=== PATIENT | female | born 2000 | race Hispanic/Latino ===

== ENCOUNTER 2023-10-04 19:46 | Emergency (ER) | payer BC ==
--- NOTE | 2023-10-04 20:38 | RAD REPORT ---
EXAM DESCRIPTION: US - Abdomen Exam Limited - 10/04/2023 8:32 pm CLINICAL HISTORY: RUQ pain COMPARISON: Abdomen Exam Complete dated 01/07/2016 FINDINGS: The gallbladder demonstrates no gallstones. No pericholecystic fluid or gallbladder wall t hickening. The common bile duct is normal measuring 4 mm. The liver demonstrates prominent fatty liver. IMPRESSION: Negative gallbladder/ biliary tree. Prominent fatty liver.
[2023-10-04] MEDS ORDERED: ONDANSETRON 4 MG/2 ML VIAL ONE (20:45)
[2023-10-04] MEDS ORDERED: FAMOTIDINE 20 MG/2 ML VIAL IV ONE (20:45)
[2023-10-04] MEDS ORDERED: NA CHLORIDE 0.9% 1,000 ML ONE (20:45)
[2023-10-04] MEDS ORDERED: KETOROLAC 30 MG/ML INJ ONE (20:45)
[2023-10-04 21:32] LABS: Specific Gravity > 1.030 (1.005-1.030); Urine Bilirubin NEGATIVE (Negative); Urine Blood Negative (Negative); Urine Clarity Clear (Clear); Urine Color Light-Yellow (Yellow); Urine Glucose 4+ (Over) (Negative); Urine Ketones 1+ (Negative); Urine Microscopic Reflex YN NO UMIC; Urine Nitrite NEGATIVE (Negative); Urine Protein NEGATIVE (Negative); Urine Urobilinogen 1+ (Normal); Urine pH 6.5 (5.0-7.0)
[2023-10-04 21:34] LABS: Specific Gravity > 1.030 (1.005-1.030)
[2023-10-04 21:47] LABS: Albumin 3.2 g/dL (3.4-5.0); Albumin/Globulin Ratio 0.8 (1.1-1.8); Anion Gap 11.5 mEq/L (5.0-15.0); Bilirubin Total 0.4 mg/dL (0.2-1.0); Globulin 4.2 g/dL (2.3-3.5); Potassium 3.5 mEq/L (3.5-5.1); Protein, Total 7.4 g/dL (6.4-8.2)
[2023-10-04 21:51] LABS: Absolute Eosinophils 0.1 K/uL (0-0.5); Absolute Lymphocytes (CBC) 3.1 K/uL (0.7-4.9); Absolute Monocytes 0.6 K/uL (0.1-1.3); Basophils % 0.3 % (0-1.3); Eosinophils % 1.2 % (0-4.4); Hematocrit 42.6 % (36.0-45.0); Hemoglobin 14.7 g/dL (12.0-15.0); Lymphocytes % 31.1 % (15.3-44.8); MCH 29.7 pg (27.0-35.0); MCHC 34.4 g/dL (32.0-36.0); MCV 86.4 fL (80-100); MPV 8.1 fL (7.6-11.3); Monocytes % 5.9 % (3.3-12.3); Neutrophils % 61.5 % (41.7-73.7); Nucleated Red Blood Cells % 0.4 % (0-0); Platelets 257 thou/uL (152-406); RBC Red Blood Cell Count 4.93 M/uL (3.86-4.86); Red Cell Distribution Width 14.3 % (12.1-15.2)
--- NOTE | 2023-10-04 22:21 | RAD REPORT ---
EXAM DESCRIPTION: CTAbdomen Pelvis W Contrast - 10/04/2023 10:13 pm CLINICAL HISTORY: Abdominal pain. ABD PAIN COMPARISON: No comparisons TECHNIQUE: CT imaging of the abdomen and pelvis was performed with 100 ml non-ionic IV contrast. All CT scans are performed using dose optimization technique as appropriate and may include automated exposure control or mA/KV adjustment according to patient size. FINDINGS: The lung bases are clear. The liver demonstrates diffuse fatty infiltration. The spleen, pancreas, adrenal glands and kidneys a re within normal limits. No bowel obstruction, free air, free fluid or abscess. Moderate stool throughout the colon. The appen galina is normal. No evidence of significant lymphadenopathy. No suspicious bony findings. Prominent posterior disc bulging lower lumbar levels. IMPRESSION: No acute intra-abdominal or pelvic finding. Prominent diffuse fatty liver.
--- NOTE | 2023-10-04 23:24 | ER ---
Nurse's Notes [facility] Name: Becky García Age: 23 yrs Sex: Female : 2000 Arrival Date: 10/04/2023 Time: 19:46 Bed 11 Private MD: Diagnosis: Upper abdominal pain, unspecified;Type 2 diabetes mellitus with hyperglycemia Presentation: 10/03 20:01 Chief complaint: Patient states: upper right abdominal pain, bloating, nausea, tender lg3 to touch X3 days and i think i might be . Coronavirus screen: Client denies travel out of the [place] in the last 14 days. At this time, the client does not indicate any symptoms associated with coronavirus-19. Ebola Screen: No symptoms or risks identified at this time. Initial Sepsis Screen: Does the patient meet any 2 criteria? No. Patient's initial sepsis screen is negative. Does the patient have a suspected source of infection? No. Patient's initial sepsis screen is negative. Risk Assessment: Do you want to hurt yourself or someone else? Patient reports no desire to harm self or others. Onset of symptoms was October 02, 2023. 20:01 Method Of Arrival: Ambulatory lg3 20:01 Acuity: ZANA 3 lg3 Triage Assessment: 20:03 General: Appears in no apparent distress. comfortable, Behavior is calm, cooperative. lg3 Pain: Complains of pain in right upper quadrant. EENT: No deficits noted. No signs and/or symptoms were reported regarding the EENT system. Neuro: No deficits noted. Adam Agitation-Sedation Scale (RASS): 0 - Alert and Calm Level of Consciousness is awake, alert, obeys commands, Oriented to person, place, time, situation. Cardiovascular: No deficits noted. Denies chest pain, shortness of breath, Capillary refill < 3 seconds Clubbing of nail beds is absent JVD is absent Patient's skin is warm and dry. Respiratory: No deficits noted. Airway is patent Respiratory effort is even, unlabored, Respiratory pattern is regular, symmetrical. GI: Abdomen is round non-distended, obese, Reports upper abdominal pain, gaseousness, nausea. : No signs and/or symptoms were reported regarding the genitourinary system. Derm: No deficits noted. No signs and/or symptoms reported regarding the dermatologic system. Skin is intact, is healthy with good turgor, Skin is dry, Skin is normal, Skin temperature is warm. Musculoskeletal: No deficits noted. No signs and/or symptoms reported regarding the musculoskeletal system. Circulation, motion, and sensation intact. Range of motion: intact in all extremities. 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 09/08/2023, unknown lg3 Historical: - Allergies: 20:03 No Known Allergies; lg3 - Home Meds: 20:03 metformin 750 mg Oral Tablet, Extended Release 24 hr 2 times per day [Active]; lg3 escitalopram oxalate oral 25 mg daily [Active]; gabapentin oral [Active]; Insulin: Regular Sub-Q [Active]; Farxiga 10 mg oral tablet daily [Active]; atorvastatin 20 mg oral tablet daily [Active]; - PMHx: 20:03 seasonal allergy; Diabetes mellitus; Anxiety; Depressive disorder; fatty liver; GERD; lg3 high cholesterol; - PSHx: 20:03 section; Tonsillectomy; Adenoid excision; lg3 - Immunization history:: Adult Immunizations up to date, Client reports receiving the 2nd dose of the Covid vaccine, Flu vaccine is up to date. - Infectious Disease History:: Denies. - Social history:: Smoking status: Patient denies any tobacco usage or history of. Patient/guardian denies using alcohol, street drugs. - Family history:: not pertinent. Screenin:35 [facility] ED Fall Risk Assessment (Adult) History of falling in the last 3 months, cm10 including since admission No falls in past 3 months (0 pts) Confusion or Disorientation No (0 pts) Intoxicated or Sedated No (0 pts) Impaired Gait No (0 pts) Mobility Assist Device Used No (0 pt) Altered Elimination No (0 pt) Score/Fall Risk Level 0 - 2 = Low Risk Oriented to surroundings, Maintained a safe environment, Hourly rounding (assess needs \T\ fall precautionary measures) done. Abuse screen: Denies threats or abuse. Denies injuries from another. Nutritional screening: No deficits noted. Tuberculosis screening: No symptoms or risk factors identified. Assessment: 21:00 General: Appears in no apparent distress. comfortable, Behavior is calm, cooperative. cm10 Neuro: No deficits noted. Level of Consciousness is awake, alert, obeys commands, Oriented to person, place, time, situation. Respiratory: No deficits noted. Airway is patent Respiratory effort is even, unlabored, Respiratory pattern is regular, symmetrical. GI: Abd is soft. Vital Signs: 20:01 BP 131 / 75; Pulse 90; Resp 17 S; Temp 98.3(O); Pulse Ox 100% on R/A; Weight 116.12 kg lg3 (R); Height 5 ft. 3 in. (R); 21:41 BP 124 / 74; Pulse 74; Resp 18; Pulse Ox 97% ; cm10 22:00 BP 124 / 74; Pulse 75; Resp 16; Pulse Ox 98% on R/A; cm10 22:30 BP 126 / 72; Pulse 67; Resp 16; Pulse Ox 99% ; cm10 23:00 BP 125 / 75; Pulse 68; Resp 18; Pulse Ox 98% on R/A; cm10 20:01 Body Mass Index 45.35 (116.12 kg, 160.02 cm) lg3 Keven Coma Score: 10/04 04:34 Eye Response: spontaneous(4). Motor Response: obeys commands(6). Verbal Response: sp4 oriented(5). Total: 15. ED Course: 10/03 19:49 Patient arrived in ED. mr 20:03 Triage completed. lg3 20:03 Arm band placed on right wrist. lg3 20:07 Teodoro Bentley MD is Attending Physician. sp4 20:33 US Abdomen Limited In Process Unspecified. EDMS 20:41 Mary Ramirez, RN is Primary Nurse. cm10 21:01 CBC with Diff Sent. cm10 21:01 CMP Sent. cm10 21:02 Lipase Sent. cm10 21:02 Test, Urine Sent. cm10 21:02 Urinalysis w/ reflexes Sent. cm10 21:02 Initial lab(s) drawn, by ak, sent to lab. Urine collected: clean catch specimen. cm10 Inserted saline lock: 20 gauge in right forearm, using aseptic technique. Blood collected. 22:13 CT Abd/Pelvis - IV Contrast Only In Process Unspecified. EDMS 23:22 Joseph Burdick DO is Referral Physician. sp4 23:35 No provider procedures requiring assistance completed. IV discontinued, intact, cm10 bleeding controlled, No redness/swelling at site. Pressure dressing applied. 23:36 Patient has correct armband on for positive identification. Provided Education on: cm10 Follow-up instructions. Administered Medications: 21:01 Drug: NS 0.9% IV 1000 ml IV at 1 bolus Per protocol; 1000 mL bolus Route: IV; Rate: 1 cm10 bolus; Site: right forearm; 22:00 Follow up: Response: No adverse reaction; IV Status: Completed infusion; IV Intake: cm10 1000ml 21:01 Drug: Famotidine IVP 20 mg IVP once; dilute with 10 mL 0.9% NaCl; give over 2 minutes cm10 Route: IVP; Site: right forearm; 22:00 Follow up: Response: No adverse reaction cm10 21:01 Drug: Ondansetron IVP 4 mg IVP once; over 2 minutes Route: IVP; Site: right forearm; cm10 23:35 Follow up: Response: No adverse reaction cm10 21:40 Drug: TORadol - Ketorolac IVP 30 mg IVP once Route: IVP; Site: right antecubital; cm10 23:35 Follow up: Response: No adverse reaction cm10 Medication: 23:36 VIS not applicable for this client. cm10 Intake: 22:00 IV: 1000ml; Total: 1000ml. cm10 Outcome: 23:23 Discharge ordered by MD. brooks 23:36 Discharged to home ambulatory, with significant other, cm10 23:36 Condition: good 23:36 Discharge instructions given to patient, Instructed on discharge instructions, follow up and referral plans. medication usage, Demonstrated understanding of instructions, follow-up care, medications, Prescriptions given X 2, 23:37 Patient left the ED. cm10 Signatures: Dispatcher [employer] EDAZ Kennedi Johnson, Danay Campuzano RN RN lg3 Teodoro Bentley MD MD sp4 Mary Ramirez RN RN cm10 Corrections: (The following items were deleted from the chart) 20:08 20:01 Chief complaint: Patient states: upper right abdominal pain, bloating, nausea, lg3 tender to touch X3 days lg3
--- NOTE | 2023-10-04 23:24 | EDPHYS ---
Physician Documentation [facility] Name: Becky García Age: 23 yrs Sex: Female : 2000 Arrival Date: 10/04/2023 Time: 19:46 Bed 11 Private MD: ED Physician Teodoro Bentley HPI: 10/03 20:07 This 23 yrs old Female presents to ER via Ambulatory with complaints of sp4 Abdominal Pain. 10/04 04:34 Patient presents with right upper abdominal pain for the past 3 days associated with sp4 vomiting. History of seasonal allergy, diabetes, anxiety, depression, fatty liver, GERD.. 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: 10/03 20:03 LMP 09/08/2023, unknown lg3 Historical: - Allergies: 20:03 No Known Allergies; lg3 - Home Meds: 20:03 metformin 750 mg Oral Tablet, Extended Release 24 hr 2 times per day [Active]; lg3 escitalopram oxalate oral 25 mg daily [Active]; gabapentin oral [Active]; Insulin: Regular Sub-Q [Active]; Farxiga 10 mg oral tablet daily [Active]; atorvastatin 20 mg oral tablet daily [Active]; - PMHx: 20:03 seasonal allergy; Diabetes mellitus; Anxiety; Depressive disorder; fatty liver; GERD; lg3 high cholesterol; - PSHx: 20:03 section; Tonsillectomy; Adenoid excision; lg3 - Immunization history:: Adult Immunizations up to date, Client reports receiving the 2nd dose of the Covid vaccine, Flu vaccine is up to date. - Infectious Disease History:: Denies. - Social history:: Smoking status: Patient denies any tobacco usage or history of. Patient/guardian denies using alcohol, street drugs. - Family history:: not pertinent. ROS: 10/04 04:34 Constitutional: Negative for fever, chills, and weight loss, positive abdominal pain, sp4 positive vomiting All other systems are negative, Exam: 04:34 Constitutional: This is a well developed, well nourished patient who is awake, alert, sp4 and in no acute distress. Head/Face: Normocephalic, atraumatic. Eyes: Pupils equal round and reactive to light, extra-ocular motions intact. Lids and lashes normal. Conjunctiva and sclera are not injected. Cornea within normal limits. Periorbital areas with no swelling, redness, or edema. ENT: Nares patent. No nasal discharge, no septal abnormalities noted. Tympanic membranes are normal and external auditory canals are clear. Oropharynx with no redness, swelling, or masses, exudates, or evidence of obstruction, uvula midline. Mucous membranes moist. Neck: Trachea midline, no thyromegaly or masses palpated, and no cervical lymphadenopathy. Supple, full range of motion without nuchal rigidity, or vertebral point tenderness. Chest/axilla: Normal chest wall appearance and motion. Nontender with no deformity. No lesions are appreciated. Cardiovascular: Regular rate and rhythm with a normal S1 and S2. No gallops, murmurs, or rubs. Normal PMI, no JVD. No pulse deficits. Respiratory: Lungs have equal breath sounds bilaterally, clear to auscultation and percussion. No rales, rhonchi or wheezes noted. No increased work of breathing, no retractions or nasal flaring. Abdomen/GI: Soft, with normal bowel sounds. No distension or tympany. No guarding or rebound. No evidence of tenderness throughout. Back: No spinal tenderness. No costovertebral tenderness. Skin: Warm, dry with normal turgor. Normal color with no rashes, no lesions, and no evidence of cellulitis. MS/ Extremity: Pulses equal, no cyanosis. Neurovascular intact. Full, normal range of motion. Neuro: Awake and alert, GCS 15, oriented to person, place, time, and situation. Cranial nerves II-XII grossly intact. Motor strength 5/5 in all extremities. Sensory grossly intact. Psych: Awake, alert, with orientation to person, place and time. Behavior, mood, and affect are within normal limits Vital Signs: 10/03 20:01 BP 131 / 75; Pulse 90; Resp 17 S; Temp 98.3(O); Pulse Ox 100% on R/A; Weight 116.12 kg lg3 (R); Height 5 ft. 3 in. (R); 21:41 BP 124 / 74; Pulse 74; Resp 18; Pulse Ox 97% ; cm10 22:00 BP 124 / 74; Pulse 75; Resp 16; Pulse Ox 98% on R/A; cm10 22:30 BP 126 / 72; Pulse 67; Resp 16; Pulse Ox 99% ; cm10 23:00 BP 125 / 75; Pulse 68; Resp 18; Pulse Ox 98% on R/A; cm10 20:01 Body Mass Index 45.35 (116.12 kg, 160.02 cm) lg3 Keven Coma Score: 10/04 04:34 Eye Response: spontaneous(4). Motor Response: obeys commands(6). Verbal Response: sp4 oriented(5). Total: 15. MDM: 10/03 20:14 Patient medically screened. sp4 23:19 ED course: EXAM DESCRIPTION: CTAbdomen Pelvis W Contrast - 10/04/2023 10:13 pm CLINICAL sp4 HISTORY: Abdominal pain. ABD PAIN COMPARISON: No comparisons TECHNIQUE: CT imaging of the abdomen and pelvis was performed with 100 ml non-ionic IV contrast. All CT scans are performed using dose optimization technique as appropriate and may include automated exposure control or mA/KV adjustment according to patient size. FINDINGS: The lung bases are clear. The liver demonstrates diffuse fatty infiltration. The spleen, pancreas, adrenal glands and kidneys are within normal limits. No bowel obstruction, free air, free fluid or abscess. Moderate stool throughout the colon. The appendix is normal. No evidence of significant lymphadenopathy. No suspicious bony findings. Prominent posterior disc bulging lower lumbar levels. IMPRESSION: No acute intra-abdominal or pelvic finding. Prominent diffuse fatty liver. . ED course: EXAM DESCRIPTION: US - Abdomen Exam Limited - 10/04/2023 8:32 pm CLINICAL HISTORY: RUQ pain COMPARISON: Abdomen Exam Complete dated 01/07/2016 FINDINGS: The gallbladder demonstrates no gallstones. No pericholecystic fluid or gallbladder wall thickening. The common bile duct is normal measuring 4 mm. The liver demonstrates prominent fatty liver. IMPRESSION: Negative gallbladder/ biliary tree. Prominent fatty liver. Signed By: Raul Black MD. 10/04 04:33 Differential Diagnosis altered mental status, sepsis, flu. Data reviewed: vital signs, sp4 nurses notes, lab test result(s), radiologic studies, CT scan. ED course: Workup unremarkable, stable for discharge home.. 04:34 Consideration of Admission/Observation Escalation of care including sp4 admission/observation considered. ED course: Stable for discharge home.. 10/03 20:18 Order name: CBC with Diff; Complete Time: 23:11 sp4 10/03 20:18 Order name: CMP; Complete Time: 23:11 sp4 10/03 20:18 Order name: Lipase; Complete Time: 23:11 sp4 10/03 20:18 Order name: Test, Urine; Complete Time: 23:11 sp4 10/03 20:18 Order name: Urinalysis w/ reflexes; Complete Time: 23:11 sp4 10/03 20:18 Order name: CT Abd/Pelvis - IV Contrast Only; Complete Time: 23:11 sp4 10/03 20:18 Order name: US Abdomen Limited; Complete Time: 23:11 sp4 10/03 20:18 Order name: IV Saline Lock; Complete Time: 21:01 sp4 10/03 20:18 Order name: Labs collected and sent; Complete Time: 21: sp4 Administered Medications: 10/03 21:01 Drug: NS 0.9% IV 1000 ml IV at 1 bolus Per protocol; 1000 mL bolus Route: IV; Rate: 1 cm10 bolus; Site: right forearm; 22:00 Follow up: Response: No adverse reaction; IV Status: Completed infusion; IV Intake: cm10 1000ml 21:01 Drug: Famotidine IVP 20 mg IVP once; dilute with 10 mL 0.9% NaCl; give over 2 minutes cm10 Route: IVP; Site: right forearm; 22:00 Follow up: Response: No adverse reaction cm10 21:01 Drug: Ondansetron IVP 4 mg IVP once; over 2 minutes Route: IVP; Site: right forearm; cm10 23:35 Follow up: Response: No adverse reaction cm10 21:40 Drug: TORadol - Ketorolac IVP 30 mg IVP once Route: IVP; Site: right antecubital; cm10 23:35 Follow up: Response: No adverse reaction cm10 Disposition Summary: 10/04/23 23:23 Discharge Ordered Notes: Location: Home sp4 Problem: new sp4 Symptoms: have improved sp4 Condition: Stable sp4 Diagnosis - Upper abdominal pain, unspecified sp4 - Type 2 diabetes mellitus with hyperglycemia sp4 Followup: sp4 - With: Private Physician - When: 7 - 10 days - Reason: Recheck today's complaints Discharge Instructions: - Discharge Summary Sheet sp4 - Abdominal Pain, Adult sp4 Forms: - Patient Portal Instructions sp4 Prescriptions: - Reglan 10 mg Oral tablet - take 1 tablet ORAL route every 6 hours PRN abdominal ache and nausea; 30 sp4 tablet; Refills: 0, Product Selection Permitted - dicyclomine 20 mg Oral tablet - take 2 tablets ORAL route 3 times per day PRN nausea and abdominal pain; 30 sp4 tablet; Refills: 0, Product Selection Permitted Signatures: Dispatcher [employer] EDMS Danay Negrete RN RN lg3 Teodoro Bentley MD MD sp4 Mary Ramirez RN RN cm10 Corrections: (The following items were deleted from the chart) 20:19 20:19 CBC+H.LAB.BRZ ordered. EDMS EDMS 20:19 20:19 COMPREHENSIVE METABOLIC PANEL+C.LAB.BRZ ordered. EDMS EDMS 20:19 20:19 LIPASE+C.LAB.BRZ ordered. EDMS EDMS 20:19 20:19 Test, Urine+UC.LAB.BRZ ordered. EDMS EDMS 20:19 20:19 Urinalysis+U.LAB.BRZ ordered. EDMS EDMS
[2023-10-05 00:51] VITALS: BP 125/75; TEMP 98.3; O2SAT 98
== END 2023-10-04 23:37 | disposition home or self-care (01) ==
LOC: ER 19:46
DX: R10.11 Right upper quadrant pain (principal); E11.65 Type 2 diabetes mellitus with hyperglycemia; Z79.4 Long term (current) use of insulin
CPT/HCPCS: 85025; 36415; 81025; 81003; 83690; 80053; 74177; 76705; 99284; Q9967; J2405; J7030

== ENCOUNTER 2024-02-06 12:48 | Emergency (ER) | payer BC, SELFPAY ==
[2024-02-06 14:14] LABS: Specific Gravity > 1.030 (1.005-1.030)
[2024-02-06 14:15] LABS: Urine Bacteria <20 /HPF (<20); Urine Bilirubin NEGATIVE (Negative); Urine Blood Negative (Negative); Urine Clarity Turbid (Clear); Urine Color Yellow (Yellow); Urine Culture Reflex Order NOT NEEDED; Urine Glucose 4+ (Over) (Negative); Urine Ketones 4+ (Over) (Negative); Urine Microscopic Reflex YN ORDER UMIC; Urine Mucus 1+ /HPF (None Seen); Urine Nitrite NEGATIVE (Negative); Urine Protein TRACE (Negative); Urine RBC <5 /HPF (None Seen); Urine Urobilinogen Normal (Normal); Urine WBC <5 /HPF (<5); Urine pH 5.5 (5.0-7.0)
--- NOTE | 2024-02-06 15:06 | RAD REPORT ---
EXAMINATION: US FIRST TRIMESTER TRANSVAGINAL WITH DOPPLER CLINICAL INDICATION: with pelvic pain TECHNIQUE: Real-time obstetrical ultrasonography of the maternal pelvis and first trimester was performed transvaginally. Color and spectral Doppler evaluation of the ovaries was performed. COMPARISON: No prior exam. FINDINGS: The uterus measures 7 x 5 x 5 cm. A sac is present within the endometrium measuring 6 mm. A yolk sac not seen. A pole not demonstrated. A gestational sac is present within the endometrium measuring Right ovary normal in size and echotexture Left ovary normal in size and echotexture Right and left adnexa unremarkable No significant free fluid IMPRESSION: 6 mm sac within the endometrium probably intrauterine . Estimated gestational age 5 weeks 2 days SANYA 10/06/2024. This may be a viable in which the pole not seen secondary to the early gestation. A i ncomplete and even a pseudogestational sac associated with an ectopic can also have this appearance. This also should be correlated clinically and with serial beta-hCG levels. Follow-up endovaginal sono gram in one week recommended for reevaluation
[2024-02-06 15:25] LABS: Absolute Eosinophils 0.1 K/uL (0-0.5); Absolute Monocytes 0.6 K/uL (0.1-1.3); Absolute Neutrophil 4.7 K/uL (1.8-8.0); Basophils % 0.5 % (0-1.3); Eosinophils % 1.4 % (0-4.4); Hematocrit 41.9 % (36.0-45.0); Hemoglobin 14.2 g/dL (12.0-15.0); Lymphocytes % 35.2 % (15.3-44.8); MCH 29.8 pg (27.0-35.0); MCV 87.5 fL (80-100); MPV 8.2 fL (7.6-11.3); Monocytes % 7.4 % (3.3-12.3); Neutrophils % 55.5 % (41.7-73.7); Platelets 256 thou/uL (152-406); RBC Red Blood Cell Count 4.78 M/uL (3.86-4.86); Red Cell Distribution Width 13.6 % (12.1-15.2)
[2024-02-06] MEDS ORDERED: NA CHLORIDE 0.9% 1,000 ML ONE (15:50)
[2024-02-06 16:03] LABS: Anion Gap 10.6 mEq/L (5.0-15.0); Potassium 3.6 mEq/L (3.5-5.1)
--- NOTE | 2024-02-06 16:23 | ER ---
Nurse's Notes [facility] Name: Becky García Age: 24 yrs Sex: Female : 2000 Arrival Date: 02/06/2024 Time: 12:48 Bed 13 Private MD: Diagnosis: Encounter for test, result positive;Hyperglycemia, unspecified Presentation: 02/05 13:00 Chief complaint: Patient states: RLQ pain onset 1 week ago that got worse today. Pt cm10 describes the pain as a sharp shooting pain. Pt states that her period is late. Denies N/V/D. Coronavirus screen: Client denies travel out of the [place] in the last 14 days. Ebola Screen: Patient denies travel to an Ebola-affected area in the 21 days before illness onset. No symptoms or risks identified at this time. Initial Sepsis Screen: Does the patient meet any 2 criteria? No. Patient's initial sepsis screen is negative. Does the patient have a suspected source of infection? No. Patient's initial sepsis screen is negative. Risk Assessment: Do you want to hurt yourself or someone else? Patient reports no desire to harm self or others. Onset of symptoms was February 06, 2024. 13:00 Method Of Arrival: Ambulatory cm10 13:00 Acuity: ZANA 3 cm10 Triage Assessment: 13:01 General: Appears in no apparent distress. comfortable, Behavior is calm, cooperative. cm10 Pain: Complains of pain in right lower quadrant Pain currently is 6 out of 10 on a pain scale. Quality of pain is described as sharp, shooting, throbbing, Pain began 1 week ago. Neuro: No deficits noted. Level of Consciousness is awake, alert, obeys commands, Oriented to person, place, time, situation, Appropriate for age. Respiratory: No deficits noted. Airway is patent Respiratory effort is even, unlabored, Respiratory pattern is regular, symmetrical. 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 - Infectious Disease History:: Denies. - Social history:: Smoking status: Patient denies any tobacco usage or history of. Screenin:04 [facility] ED Fall Risk Assessment (Adult) History of falling in the last 3 months, rs5 including since admission. [facility] ED Fall Risk Assessment (Adult) History of falling in the last 3 months, including since admission No falls in past 3 months (0 pts) Confusion or Disorientation No (0 pts) Intoxicated or Sedated No (0 pts) Impaired Gait No (0 pts) Mobility Assist Device Used No (0 pt) Altered Elimination No (0 pt) Score/Fall Risk Level 0 - 2 = Low Risk Oriented to surroundings, Maintained a safe environment. Abuse screen: Denies threats or abuse. Nutritional screening: No deficits noted. Tuberculosis screening: No symptoms or risk factors identified. Assessment: 13:05 General: Appears in no apparent distress. uncomfortable, Behavior is calm, cooperative. rs5 Pain: Complains of pain in right lower quadrant Pain currently is 3 out of 10 on a pain scale. Quality of pain is described as aching, Is continuous. Neuro: Level of Consciousness is awake, alert, obeys commands, Oriented to person, place, time, situation. Cardiovascular: Patient's skin is warm and dry. Respiratory: Airway is patent Respiratory effort is even, unlabored, Respiratory pattern is regular, symmetrical. 13:05 GI: Bowel sounds present X 4 quads. Abd is soft and non tender X 4 quads. : No signs rs5 and/or symptoms were reported regarding the genitourinary system. EENT: No signs and/or symptoms were reported regarding the EENT system. Derm: Skin is intact, Skin is pink, warm \T\ dry. Musculoskeletal: Range of motion: intact in all extremities. 14:10 Reassessment: Patient and/or family updated on plan of care and expected duration. Pain rs5 level reassessed. Patient is alert, oriented x 3, equal unlabored respirations, skin warm/dry/pink. 15:22 Reassessment: Patient and/or family updated on plan of care and expected duration. Pain rs5 level reassessed. Patient is alert/active/playful, equal unlabored respirations, skin warm/dry/pink. 16:38 Reassessment: No changes from previously documented assessment. rs5 Vital Signs: 13:00 BP 138 / 73; Pulse 88; Resp 14; Temp 98.7; Pulse Ox 97% on R/A; Weight 117.93 kg; cm10 Height 5 ft. 3 in. ; Pain 6/10; 14:00 BP 122 / 79; Pulse 74; Resp 18; Pulse Ox 99% on R/A; rs5 16:38 BP 124 / 77; Pulse 71; Resp 17; Pulse Ox 99% on R/A; rs5 13:00 Body Mass Index 46.06 (117.93 kg, 160.02 cm) cm10 13:00 Pain Scale: Adult cm10 ED Course: 12:50 Patient arrived in ED. im 12:54 Janeth Arroyo FNP-C is PHCP. kb 12:54 Palmer Mcclellan MD is Attending Physician. kb 13:01 Triage completed. cm10 13:02 Arm band placed on Patient placed in waiting room. cm10 13:04 Patient has correct armband on for positive identification. Placed in gown. Bed in low rs5 position. Call light in reach. Side rails up X2. 13:04 No provider procedures requiring assistance completed. rs5 14:58 US Transvaginal Ob In Process Unspecified. EDMS 15:04 Brendan Armenta, RN is Primary Nurse. rs5 16:40 Provided Education on: discharge instructions . rs5 16:51 Patient did not have IV access during this emergency room visit. jb4 Administered Medications: 15:10 Drug: NS 0.9% IV 1000 ml IV at 1000 ml once; to be given as a bolus over 60 minutes rs5 Route: IV; Rate: 1000 ml; Site: left antecubital; 16:20 Follow up: Response: No adverse reaction; IV Status: Completed infusion; IV Intake: rs5 1000ml Medication: 13:05 VIS not applicable for this client. rs5 Intake: 16:20 IV: 1000ml; Total: 1000ml. rs5 Outcome: 16:22 Discharge ordered by . kb 16:51 Discharged to home ambulatory, jb4 16:51 Condition: stable 16:51 Discharge instructions given to patient, Instructed on discharge instructions, follow up and referral plans. Demonstrated understanding of instructions, follow-up care, 16:51 Patient left the ED. jb4 Signatures: Dispatcher [employer] Jaenth Moffett, INSULATION EXTRUDER OPERATOR-C INSULATION EXTRUDER OPERATOR-Ckb Fox Estevez, RN RN jb4 Brenadn Armenta, RN RN rs5 Erna Kimble Clarissa RN RN cm10
--- NOTE | 2024-02-06 16:23 | EDPHYS ---
Physician Documentation [facility] Name: Becky García Age: 24 yrs Sex: Female : 2000 Arrival Date: 02/06/2024 Time: 12:48 Bed 13 Private MD: ED Physician Palmer Mcclellan HPI: 02/05 13:23 This 24 yrs old Female presents to ER via Ambulatory with complaints of kb Abdominal Pain. 13:23 Patient is a 24-year-old female who presents for right pelvic pain, described as kb "ovarian pain." States she missed her period this month so she has a suspicion that she is so she wanted to get checked out. LMP 01/03/2024. Patient states she has not taken a test, no vaginal bleeding, vomiting, diarrhea, fever. Patient states pain started 1 week ago and got worse today.. 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 - Infectious Disease History:: Denies. - Social history:: Smoking status: Patient denies any tobacco usage or history of. ROS: 13:23 Constitutional: As per HPI kb Exam: 13:23 Constitutional: This is a well developed, well nourished patient who is awake, alert, kb and in no acute distress. Head/Face: Normocephalic, atraumatic. ENT: Moist Mucous membranes Cardiovascular: Regular rate Respiratory: Respirations even and unlabored. No increased work of breathing. Talking in full sentences Skin: Warm, dry with normal turgor. Normal color. MS/ Extremity: Pulses equal, no cyanosis. Neurovascular intact. Full, normal range of motion. Neuro: Awake and alert, GCS 15, oriented to person, place, time, and situation. 13:23 Abdomen/GI: Inspection: abdomen appears normal, Bowel sounds: normal, Palpation: soft, in all quadrants, mild abdominal tenderness, in the right lower quadrant, Vital Signs: 13:00 BP 138 / 73; Pulse 88; Resp 14; Temp 98.7; Pulse Ox 97% on R/A; Weight 117.93 kg; cm10 Height 5 ft. 3 in. ; Pain 6/10; 14:00 BP 122 / 79; Pulse 74; Resp 18; Pulse Ox 99% on R/A; rs5 16:38 BP 124 / 77; Pulse 71; Resp 17; Pulse Ox 99% on R/A; rs5 13:00 Body Mass Index 46.06 (117.93 kg, 160.02 cm) cm10 13:00 Pain Scale: Adult cm10 MDM: 12:54 Medical Screening Exam initiated kb 13:24 Data reviewed: vital signs, nurses notes. kb 16:20 Differential diagnosis: Ectopic , non-specific abd pain, Ovarian Torsion, kb urinary tract infection. Counseling: I had a detailed discussion with the patient and/or guardian regarding the historical points, exam findings, and any diagnostic results supporting the discharge/admit diagnosis, lab results, radiology results, the need for outpatient follow up, an OB/Gyne specialist, to return to the emergency department if symptoms worsen or persist or if there are any questions or concerns that arise at home. 02/05 13:00 Order name: Test, Urine; Complete Time: 14:16 kb 02/05 13:00 Order name: Urinalysis w/ reflexes; Complete Time: 14:16 kb 02/05 14:17 Order name: Abo/rh Typing; Complete Time: 15:54 kb 02/05 14:17 Order name: Basic Metabolic Panel; Complete Time: 16:04 kb 02/05 14:17 Order name: CBC with Diff; Complete Time: 15:30 kb 02/05 14:17 Order name: Quantitative Hcg; Complete Time: 16:04 kb 02/05 14:17 Order name: US Transvaginal Ob; Complete Time: 15:12 kb 02/05 14:17 Order name: IV Saline Lock; Complete Time: 15:15 kb 02/05 14:17 Order name: Labs collected and sent; Complete Time: 15:15 kb 02/05 14:17 Order name: NPO; Complete Time: 15:48 kb Administered Medications: 15:10 Drug: NS 0.9% IV 1000 ml IV at 1000 ml once; to be given as a bolus over 60 minutes rs5 Route: IV; Rate: 1000 ml; Site: left antecubital; 16:20 Follow up: Response: No adverse reaction; IV Status: Completed infusion; IV Intake: rs5 1000ml Disposition Summary: 02/06/24 16:22 Discharge Ordered Notes: Location: Home kb Condition: Stable kb Diagnosis - Encounter for test, result positive kb - Hyperglycemia, unspecified kb Followup: kb - With: Emergency Department - When: As needed - Reason: Worsening of condition Followup: kb - With: Private Physician - When: 2 - 3 days - Reason: Recheck today's complaints, Continuance of care, Re-evaluation by your physician Discharge Instructions: - Discharge Summary Sheet kb - Abdominal Pain During , [id number] kb - Hyperglycemia, [id number] kb Forms: - Medication Reconciliation Form kb - Antibiotic Education kb - Prescription Opioid Use kb - Patient Portal Instructions kb - Leadership Thank You Letter kb - Work release form jb4 Signatures: Dispatcher [employer] EDJaneth Isaacs, DIOMEDES-C DIOMEDES-Brendan Villafuerte, RN RN rs5 Mary Ramirez RN RN cm10 Corrections: (The following items were deleted from the chart) 13:00 13:00 Test, Urine+UC.LAB.BRZ ordered. EDMS EDMS 13:00 13:00 Urinalysis+U.LAB.BRZ ordered. EDMS EDMS
[2024-02-06 22:17] VITALS: BP 138/73; TEMP 98.7; O2SAT 97
== END 2024-02-06 16:51 | disposition home or self-care (01) ==
LOC: ER 12:48
DX: Z32.01 Encounter for pregnancy test, result positive (principal); E11.65 Type 2 diabetes mellitus with hyperglycemia
CPT/HCPCS: 36415; 76817; 80048; 81001; 81025; 84702; 85025; 86900; 86901; J7030